=== PATIENT | female | born 1960 | race Caucasian/White ===

== ENCOUNTER → 2023-08-03 14:13 | Outpatient (REF) | payer OTHER, SELFPAY | LOC: HWRAD 14:13 | PROVIDERS: ATTENDING PHYSICIAN Nurse Practitioner Family | DX: R05.9 Cough, unspecified (principal) | CPT/HCPCS: 71046 ==

== ENCOUNTER → 2023-08-15 07:25 | Outpatient (REF) | payer OTHER, SELFPAY | LOC: HWRAD 07:25 | PROVIDERS: ATTENDING PHYSICIAN Nurse Practitioner Family | DX: J98.59 Other diseases of mediastinum, not elsewhere classified (principal) | CPT/HCPCS: 71260; Q9967 ==

== ENCOUNTER 2023-09-04 06:12 | Day surgery (SDC) | payer OTHER, SELFPAY ==
[2023-08-30 06:41] VITALS: BMI 23.0
[2023-08-30 09:05] LABS: Hematocrit 40.5 % (37.0-47.0); Hemoglobin 13.5 g/dL (12.0-16.0); Mean Corp Hgb Conc. 33.3 g/dL (33.0-37.0); Mean Corpuscular Hgb 30.5 pg (27.0-31.0); Mean Corpuscular Volume 91.6 fL (81.0-99.0); Mean Platelet Volume 10.2 fL (7.4-10.4); Platelet Count 276 10^3/uL (130-400); Red Blood Cell Count 4.42 10^6/uL (4.20-5.40); White Blood Cell Count 5.4 10^3/uL (4.8-10.8)
[2023-08-30 09:50] LABS: ALT (SGPT) 16 U/L (0-35); AST (SGOT) 35 U/L (14-36); Albumin 4.3 g/dl (3.5-5.0); Alkaline Phosphatase 84 U/L (38-126); Blood Urea Nitrogen 21 mg/dl (7-17); Calcium 9.6 mg/dl (8.4-10.2); Carbon Dioxide 23 mmol/L (22-30); Chloride 105 mmol/L (98-107); Estimated Creatinine Clearance 70 ml/min; Glucose 88 mg/dl (70-99); Potassium 4.6 mmol/L (3.5-5.1); Sodium 138 mmol/L (135-145); Total Bilirubin 0.5 mg/dl (0.2-1.3); Total Protein 7.3 g/dl (6.3-8.2); eGFR > 60.00
[2023-08-30 09:58] LABS: INR 1.12; PT 14.4 Sec (11.4-14.6)
[2023-09-04] VITALS (8 sets, daily range): BP systolic 110–124; BP diastolic 68–80; BMI 22.5; BMI 23.0
[2023-09-04] MEDS: NEURONTIN 300 MG PO (09:16)
[2023-09-04] MEDS: TYLENOL 1000 MG PO (09:17)
[2023-09-04] MEDS: NORMOSOL-R 1000 IV (09:19)
[2023-09-04] MEDS: HEPARIN 5000 UNITS SC (09:29)
--- NOTE | 2023-09-04 13:31 | W.IMMPOSTOP ---
Surgical Immed Post Op Note
-
PREOPERATIVE DIAGNOSIS: Right Substernal Thyroid Mass - E041
POSTOPERATIVE DIAGNOSIS: Same
SURGEON: Jon Ibarra M.D.
OPERATION: Resection of the right substernal thyroid mass - 32368
ANESTHESIA: GET
ESTIMATED BLOOD LOSS: 3 cc
DRAINS: None
SPECIMEN: right total thyroid
FINDINGS: Right substernal goiter
COMPLICATIONS:�None
--- NOTE | 2023-09-04 13:33 | OR.RPT ---
Operative Report
Operative Report
PREOPERATIVE DIAGNOSIS: Right Substernal Thyroid Mass - E041
POSTOPERATIVE DIAGNOSIS: Same
SURGEON: Jon Ibarra M.D.
OPERATION: Resection of the right substernal thyroid mass - 84568
ANESTHESIA: GET
ESTIMATED BLOOD LOSS: 3 cc
DRAINS: None
SPECIMEN: right total thyroid
FINDINGS: right substernal goiter
COMPLICATIONS:�None
PROCEDURE:
The patient was taken to the operating room and placed in the usual supine position. After adequate general endotracheal anesthesia was established, the patient�s neck was extended, prepped, and draped in the typical sterile fashion. A 6 cm
transcervical incision was made two fingerbreadths above the sternal notch. The skin incision was made with the #15 blade, which was taken through the skin into the subcutaneous tissue. The underlying platysma muscle was divided, and subplatysmal
flaps were created superiorly to the thyroid cartilage and inferiorly to the sternal notch. Strap muscles were identified and at the midline.
Attention was turned to the patient�s right thyroid lobe. The right thyroid lobe was mobilized medially. During this process, the right middle thyroid vein and inferior thyroid artery were dissected and ligated with Ligasure. There was a mass with
significant substernal extension, which was delivered out of the mediastinum through the cervical incision. Next, the right superior pole was taken down by dissecting and transecting the superior pole vessels with a Ligasure. The right thyroid lobe
was mobilized medially. During this process, the right recurrent laryngeal nerve was identified and preserved throughout its entire course. The right inferior parathyroid gland was identified and preserved. The right thyroid lobe with isthmus was
resected off the trachea and sent to the pathology department.
After obtaining adequate hemostasis, the strap muscle was approximated with #3-0 Vicryl in a running fashion, and platysma muscles were reapproximated with #3-0 Vicryl in an interrupted fashion, and the skin was approximated with #4-0 Monocryl in a
running subcuticular fashion. Steri-strips and sterile dressings were placed. The patient tolerated the procedure well. The final instrument, needle, and sponge counts were correct.
== END 2023-09-04 13:54 | disposition home or self-care (01) ==
LOC: SDS 06:12
PROVIDERS: ATTENDING PHYSICIAN Surgery; FAMILY PHYSICIAN Nurse Practitioner Family
DX: E04.1 Nontoxic single thyroid nodule (principal); E04.9 Nontoxic goiter, unspecified
CPT/HCPCS: 60271; 88307; 36415; 80053; 85027; 85610; 85730; 86850; 86900; 86901; 93005; C9250